=== PATIENT | male | born 1995 | race African-American/Black ===

== ENCOUNTER 2020-02-16 08:32 | Emergency (ER) | payer MEDICAID ==
[~2020-02-16] VITALS: Ht 180.3 cm; Wt 97.5 kg
[2020-02-16 08:38] VITALS: BP 159/92
--- NOTE | 2020-02-16 08:40 | NUR ---
ED Nurse Note: Pt walked in from home c/o toothache x 3 days. Pt denies fever/chills/n/v. Respirations even and unlabored on room air. Vitals stable as documented.
[2020-02-16] MEDS ORDERED: Augmentin 875mg Tab ORAL ONE (08:45)
[2020-02-16] MEDS ORDERED: HYDROcodone/Acetamin 5/325 tab ORAL ONE (08:45)
[2020-02-16] MEDS ORDERED: TRAMADOL HCL50 MG ORAL (08:48)
[2020-02-16] MEDS ORDERED: AUGMENTIN 875-1 EAC1 ORAL (08:48)
--- NOTE | 2020-02-16 08:54 | Emergency Room Report ---
History of Present Illness General Chief Complaint: Toothache Source: Patient Present Illness HPI Patient is a 24-year-old male denies any significant past medical history who presents to the ER complaining of dental pain. Patient states that his left lower wisdom tooth is coming and that is been causing him pain for the past several days. He denies any fever or chills. He states that he has a dental clinic in [place] that he goes to and will follow-up that. He denies any fever or chills. He denies any difficulty swallowing. COVID-19 risk:Travel to affect: No Allergies: Coded Allergies: IBUPROFEN (Verified Allergy, Unknown, 02/16/20) "my throat swollen up" Patient History Reviewed Nursing Documentation: PMH: Agreed; PSxH: Agreed Nursing Documentation-PMH Past Medical History: No Stated History Review of Systems All Other Systems: negative except mentioned in HPI Physical Exam Vital Signs Date Time Temp Pulse Resp B/P (MAP) Pulse Ox O2 Delivery O2 Flow Rate FiO2 02/16/20 08:38 98.1 75 16 159/92 (114) 97 Room Air Sp02 EP Interpretation: reviewed, normal General Appearance: alert, GCS 15, non-toxic, mild distress Head: normocephalic, atraumatic Eyes: bilateral eye normal inspection, bilateral eye PERRL ENT: other - Tenderness around tooth #32, partially visible above gum line, no erythema or edema Neck: full range of motion, supple/symm/no masses Respiratory: chest non-tender, lungs clear, normal breath sounds, speaking full sentences Cardiovascular #1: regular rate, rhythm, no edema Gastrointestinal: non tender, soft Rectal: deferred Musculoskeletal: back normal, normal range of motion, gait/station normal Neurologic: alert, 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 Patient advised to follow-up with dental clinic and given outpatient resources. After discussing risks and benefits of further diagnostics, treatment plans, as well as indications for and risks of admission , the patient is agreeable to being discharged home. I have explained that their evaluation and treatment in the emergency department today is an important step towards them achieving better health but that their evaluation today is not intended to replace further evaluation and treatment by a physician in their local clinic. I have explained that while the current findings suggest no immediate life threatening emergency they will require further evaluation and treatment by a physician of their choice in their area. They understand that it will be necessary for them to review the final reports of their ED visit with their clinic physician. We have reviewed indications for return to the Emergency Department. I have explained that additional time may need to pass and/or additional testing as an outpatient may be necessary before a definitive diagnosis can be made. They tell me they are willing to follow up as instructed within the timeframe I recommend. They appear to understand what we discussed. Additionally they understand that if they are unable to be seen by an outpatient physician they are welcome, and in fact should, return to the Emergency Department for a repeat evaluation. The patient is stable at time of discharge. Last Vital Signs Date Time Temp Pulse Resp B/P (MAP) Pulse Ox O2 Delivery O2 Flow Rate FiO2 02/16/20 08:38 98.1 16 159/92 97 Room Air 02/16/20 08:38 75 Disposition: HOME, SELF-CARE Scripts Tramadol Hcl* (ULTRAM*) 50 Mg Tablet 50 MG ORAL Q6H PRN for For Pain, #12 TAB 0 Refills Prov: Sun Martinez M.D. 02/16/20 Amoxicillin/Potassium Clav 875-125* (AUGMENTIN 875-125 TABLET*) 1 Each Tablet 1 TAB ORAL TWICE A DAY for 7 Days, TAB Prov: Sun Martinez M.D. 02/16/20 Referrals: [facility](age 2-12) - Orthodontic Clinic - Hours: Sat,Sat,, 8:15am and 1pm (new patient screening), Tu. 1pm. Emergency clinic Saturday - Saturday 8:30am and 1pm, Tues. 1pm. *Call to check if clinic is open; No appointment necessary for the first visit ( new patient screening), Arrive 15-30 minutes early as it is first come, first serve. [facility] INFO: New Patient Screening: Sat- 8am-1pm Sat- 9am -5pm and Sat 2pm-5pm Patient Instructions: Dental Pain Additional Instructions: The patient was provided with discharge instructions, notified to follow-up with a primary care doctor and or specialist in the next 24-48 hours, and to return to the ED if they have worsening of their symptoms. Please note that this report is being documented using [employer] technology. This can lead to erroneous entry secondary to incorrect interpretation by the dictating instrument. Sun Martinez M.D. Feb 16, 2020 08:54
[2020-02-16 09:09] VITALS: BP 155/89
--- NOTE | 2020-02-16 09:09 | NUR ---
Note marvinsabina in EDM - 02/16/20 at 0923 by KADEEM ER DISCHARGE NOTE: Patient is cleared to be discharged per ERMD, pt is aox4, on room air, with stable vital signs as dp. pt was given dc and prescription instructions, pt was able to verbalize understanding, pt id band and iv site removed without complications. pt is able to ambulate with steady gait. pt took all belongings.
--- NOTE | 2020-02-16 09:09 | NUR ---
ER DISCHARGE NOTE: Patient is cleared to be discharged per ERMD, pt is aox4, on room air, with stable vital signs as documented. pt was given dc and prescription instructions, pt was able to verbalize understanding, pt id band removed. pt is able to ambulate with steady gait. pt took all belongings.
== END 2020-02-16 09:09 | disposition home or self-care (01) ==
LOC: EMR 08:50
DX: K08.89 Other specified disorders of teeth and supporting structures (principal); Z88.6 Allergy status to analgesic agent
CPT/HCPCS: 99282